=== PATIENT | female | born 1990 | race Caucasian/White ===

== ENCOUNTER 2018-02-04 22:41 | Emergency (ER) | payer BC, OTHER ==
[~2018-02-04] VITALS: Ht 154.9 cm; Wt 51.3 kg
[~2018-02-04 22:41] MED LIST: ALBUTEROL; CIPROFLOXACIN500 M1 PO; FLAGYL500 MG PO; FLEXERIL PO; NORCO 5-325 TA1 EACH PO; PHENERGAN 25 MG25 M1 PO; ZOFRAN4 MG PO
[2018-02-04 23:27] LABS: URINE BILIRUBIN NEGATIVE (Negative); URINE BLOOD NEGATIVE (Negative); URINE CLARITY CLEAR; URINE COLOR YELLOW; URINE GLUCOSE-RANDOM* NEGATIVE (Negative); URINE KETONES NEGATIVE (Negative); URINE LEUKOCYTES-REFLEX NEGATIVE (Negative); URINE NITRITE-REFLEX NEGATIVE (Negative); URINE PROTEIN (DIPSTICK) NEGATIVE (Negative); URINE SPECIFIC GRAVITY 1.015 (1.005-1.035); URINE UROBILINOGEN 0.2 E.U./dl (0.2-1.0)
[2018-02-04 23:39] LABS: ABSOLUTE NEUTROPHILS 4.5 thou/uL (1.4-8.2); BASOPHILS 0.7 % (0.0-2.0); EOSINOPHILS 1.5 % (0.0-3.0); HEMATOCRIT 39.3 % (37.0-47.0); HEMOGLOBIN 13.5 gm/dL (12.0-15.0); LYMPHOCYTES 33.7 % (24.0-44.0); MCH 31.5 pg (26.0-34.0); MCHC 34.3 g/dL (28.0-37.0); MCV 91.8 fL (80.0-100.0); MONOCYTES 6.3 % (1.0-8.0); PLATELET COUNT 264 thou/uL (150-400); POLYS 57.8 % (36.0-66.0); RBC 4.29 mil/uL (4.20-5.00); RDW 12.1 % (10.5-14.5); WBC 7.7 thou/uL (4.0-11.0)
[2018-02-04 23:47] LABS: ANION GAP 4 mmol/L (7-16); BUN 17 mg/dL (7-18); CALCIUM 9.5 mg/dL (8.5-10.1); CHLORIDE 103 mmol/L (98-107); CO2 30 mmol/L (21-32); CREATININE 0.8 mg/dL (0.6-1.0); GLUCOSE 114 mg/dL (74-106); POTASSIUM 3.8 mmol/L (3.5-5.1); SODIUM 137 mmol/L (136-145)
[2018-02-04 23:53] LABS: ALBUMIN 4.4 g/dL (3.4-5.0); DIRECT BILIRUBIN < 0.1 mg/dL (<0.1-0.3); LIPASE 117 U/L (73-393); SGOT 20 U/L (15-37); SGPT 24 U/L (30-65); TOTAL BILIRUBIN 0.2 mg/dL (<0.1-1.0); TOTAL PROTEIN 8.3 g/dL (6.4-8.2)
[2018-02-05] MEDS ORDERED: TESSALON PERLE100 MG PO (04:33)
[2018-02-05] MEDS ORDERED: MOBIC15 MG PO (04:33)
[2018-02-05 04:46] VITALS: BP 96/48
[2018-02-06 14:08] LABS: NEISSERIA GONORRHEA-PCR Negative (Negative)
== END 2018-02-05 04:47 | disposition home or self-care (01) ==
LOC: ER 22:41
PROVIDERS: Emergency Medicine
DX: N83.201 Unspecified ovarian cyst, right side (principal); K21.9 Gastro-esophageal reflux disease without esophagitis; G43.909 Migraine, unspecified, not intractable, without status migrainosus; J45.909 Unspecified asthma, uncomplicated; F17.210 Nicotine dependence, cigarettes, uncomplicated; Z88.0 Allergy status to penicillin; Z88.1 Allergy status to other antibiotic agents

== ENCOUNTER 2019-03-30 08:49 | Emergency (ER) | payer BC, OTHER ==
[~2019-03-30] VITALS: Ht 157.5 cm; Wt 56.2 kg
[~2019-03-30 08:49] MED LIST changes: +MOBIC15 MG PO; +TESSALON PERLE100 MG PO
[2019-03-30] MEDS ORDERED: IBUPROFEN 800800 M1 PO (09:01)
[2019-03-30 09:35] LABS: URINE BILIRUBIN NEGATIVE (Negative); URINE BLOOD NEGATIVE (Negative); URINE CLARITY CLEAR; URINE COLOR YELLOW; URINE GLUCOSE-RANDOM* NEGATIVE (Negative); URINE KETONES NEGATIVE (Negative); URINE LEUKOCYTES-REFLEX NEGATIVE (Negative); URINE NITRITE-REFLEX NEGATIVE (Negative); URINE PROTEIN (DIPSTICK) NEGATIVE (Negative); URINE UROBILINOGEN 0.2 E.U./dl (0.2-1.0)
[2019-03-30 09:38] LABS: ABSOLUTE NEUTROPHILS 3.1 thou/uL (1.4-8.2); BASOPHILS 0.9 % (0.0-2.0); EOSINOPHILS 2.7 % (0.0-3.0); HEMOGLOBIN 13.5 gm/dL (12.0-15.0); LYMPHOCYTES 30.6 % (24.0-44.0); MCHC 33.7 g/dL (28.0-37.0); MCV 91.9 fL (80.0-100.0); MONOCYTES 9.4 % (1.0-8.0); PLATELET COUNT 244 thou/uL (150-400); POLYS 56.4 % (36.0-66.0); RBC 4.35 mil/uL (4.20-5.00); WBC 5.5 thou/uL (4.0-11.0)
[2019-03-30 09:46] LABS: ANION GAP 8 mmol/L (7-16); BUN 14 mg/dL (7-18); CALCIUM 9.3 mg/dL (8.5-10.1); CHLORIDE 103 mmol/L (98-107); CO2 28 mmol/L (21-32); CREATININE 0.6 mg/dL (0.6-1.0); GLUCOSE 92 mg/dL (74-106); POTASSIUM 3.8 mmol/L (3.5-5.1); SODIUM 139 mmol/L (136-145)
[2019-03-30 09:52] LABS: ALBUMIN 3.4 g/dL (3.4-5.0); DIRECT BILIRUBIN < 0.1 mg/dL (<0.1-0.3); LIPASE 114 U/L (73-393); SGOT 16 U/L (15-37); SGPT 19 U/L (30-65); TOTAL BILIRUBIN 0.6 mg/dL (<0.1-1.0); TOTAL PROTEIN 7.7 g/dL (6.4-8.2)
[2019-03-30 10:41] VITALS: BP 92/56
== END 2019-03-30 10:42 | disposition home or self-care (01) ==
LOC: ER 08:49
PROVIDERS: Emergency Medicine
DX: R10.13 Epigastric pain (principal); R10.30 Lower abdominal pain, unspecified; K21.9 Gastro-esophageal reflux disease without esophagitis; F17.210 Nicotine dependence, cigarettes, uncomplicated; J45.909 Unspecified asthma, uncomplicated; G43.909 Migraine, unspecified, not intractable, without status migrainosus; Z88.0 Allergy status to penicillin; Z88.1 Allergy status to other antibiotic agents

== ENCOUNTER 2019-08-08 23:52 | Emergency (ER) | payer BC, OTHER ==
[~2019-08-08] VITALS: Ht 154.9 cm; Wt 57.1 kg
[~2019-08-08 23:52] MED LIST changes: +IBUPROFEN 800800 M1 PO
[2019-08-09 00:36] LABS: URINE BILIRUBIN NEGATIVE (Negative); URINE BLOOD NEGATIVE (Negative); URINE CLARITY CLEAR; URINE COLOR YELLOW; URINE GLUCOSE-RANDOM* NEGATIVE (Negative); URINE KETONES NEGATIVE (Negative); URINE LEUKOCYTES-REFLEX NEGATIVE (Negative); URINE NITRITE-REFLEX NEGATIVE (Negative); URINE PROTEIN (DIPSTICK) NEGATIVE (Negative); URINE UROBILINOGEN 0.2 E.U./dl (0.2-1.0)
[2019-08-09 01:06] LABS: AMP/METHAMP Negative (Negative); BARBITURATES Negative (Negative); BENZODIAZEPINES Negative (Negative); COCAINE Negative (Negative); METHADONE Negative (Negative); OPIATES Negative (Negative); PCP Negative (Negative)
[2019-08-09 01:06] LABS: ABSOLUTE NEUTROPHILS 3.6 thou/uL (1.4-8.2); BASOPHILS 0.9 % (0.0-2.0); EOSINOPHILS 1.7 % (0.0-3.0); HEMATOCRIT 36.6 % (37.0-47.0); HEMOGLOBIN 12.6 gm/dL (12.0-15.0); MCH 31.8 pg (26.0-34.0); MCHC 34.4 g/dL (28.0-37.0); MCV 92.6 fL (80.0-100.0); MONOCYTES 6.7 % (1.0-8.0); PLATELET COUNT 251 thou/uL (150-400); POLYS 53.7 % (36.0-66.0); RBC 3.95 mil/uL (4.20-5.00); RDW 12.2 % (10.5-14.5); WBC 6.6 thou/uL (4.0-11.0)
[2019-08-09 01:13] LABS: CALCIUM 8.8 mg/dL (8.5-10.1); CREATININE 0.7 mg/dL (0.6-1.0); POTASSIUM 3.5 mmol/L (3.5-5.1)
[2019-08-09 01:19] LABS: ALBUMIN 3.8 g/dL (3.4-5.0); TOTAL BILIRUBIN 0.3 mg/dL (<0.1-1.0); TOTAL PROTEIN 7.1 g/dL (6.4-8.2)
[2019-08-09] MEDS ORDERED: ONDANSETRON ODT8 MG PO (02:41)
[2019-08-09] MEDS ORDERED: NAPROXEN375 MG PO (02:41)
[2019-08-09] MEDS ORDERED: TRAMADOL 50 MG50 MG PO (02:41)
[2019-08-09 02:54] VITALS: BP 102/50
== END 2019-08-09 02:55 | disposition home or self-care (01) ==
LOC: ER 23:52
PROVIDERS: Emergency Medicine
DX: R10.11 Right upper quadrant pain (principal); R19.7 Diarrhea, unspecified; R11.0 Nausea; K21.9 Gastro-esophageal reflux disease without esophagitis; J45.909 Unspecified asthma, uncomplicated; G43.909 Migraine, unspecified, not intractable, without status migrainosus; F17.210 Nicotine dependence, cigarettes, uncomplicated; Z88.1 Allergy status to other antibiotic agents; Z88.0 Allergy status to penicillin

== ENCOUNTER 2019-10-18 21:12 | Emergency (ER) | payer BC, OTHER ==
[~2019-10-18] VITALS: Ht 157.5 cm; Wt 57.1 kg
[~2019-10-18 21:12] MED LIST changes: +NAPROXEN375 MG PO; +ONDANSETRON ODT8 MG PO; +TRAMADOL 50 MG50 MG PO
[2019-10-18 21:14] VITALS: BP 116/73
[2019-10-18] MEDS ORDERED: NORCO 5-325 TA1 EAC1 PO (23:14)
[2019-10-18] MEDS ORDERED: LIDOCAINE PAIN1 EACH TRANSDERM (23:14)
== END 2019-10-18 23:45 | disposition home or self-care (01) ==
LOC: ER 21:12
DX: M54.5 Low back pain (principal); K21.9 Gastro-esophageal reflux disease without esophagitis; J45.909 Unspecified asthma, uncomplicated; G43.909 Migraine, unspecified, not intractable, without status migrainosus; F17.210 Nicotine dependence, cigarettes, uncomplicated; Z88.0 Allergy status to penicillin; Z88.1 Allergy status to other antibiotic agents

== ENCOUNTER 2020-01-07 15:39 | Emergency (ER) | payer BC, OTHER ==
[~2020-01-07] VITALS: Ht 157.5 cm; Wt 54.4 kg
[~2020-01-07 15:39] MED LIST changes: +LIDOCAINE PAIN1 EACH TRANSDERM; +NORCO 5-325 TA1 EAC1 PO
[2020-01-07 16:43] LABS: ABSOLUTE NEUTROPHILS 4.5 thou/uL (1.4-8.2); BASOPHILS 0.7 % (0.0-2.0); HEMOGLOBIN 13.4 gm/dL (12.0-15.0); LYMPHOCYTES 27.7 % (24.0-44.0); MCH 31.8 pg (26.0-34.0); MCHC 34.2 g/dL (28.0-37.0); PLATELET COUNT 251 thou/uL (150-400); POLYS 64.6 % (36.0-66.0); RDW 12.8 % (10.5-14.5)
[2020-01-07 16:53] LABS: URINE BILIRUBIN NEGATIVE (Negative); URINE BLOOD NEGATIVE (Negative); URINE CLARITY CLEAR; URINE COLOR YELLOW; URINE GLUCOSE-RANDOM* NEGATIVE (Negative); URINE KETONES NEGATIVE (Negative); URINE LEUKOCYTES-REFLEX NEGATIVE (Negative); URINE NITRITE-REFLEX NEGATIVE (Negative); URINE PROTEIN (DIPSTICK) NEGATIVE (Negative); URINE SPECIFIC GRAVITY 1.015 (1.005-1.035); URINE UROBILINOGEN 0.2 E.U./dl (0.2-1.0)
[2020-01-07 16:54] LABS: CALCIUM 9.1 mg/dL (8.5-10.1); CREATININE 0.8 mg/dL (0.6-1.0); POTASSIUM 3.8 mmol/L (3.5-5.1)
[2020-01-07 18:10] VITALS: BP 109/54
== END 2020-01-07 18:10 | disposition home or self-care (01) ==
LOC: ER 15:39
PROVIDERS: Nurse Practitioner Family
DX: O23.591 Infection of other part of genital tract in pregnancy, first trimester (principal); O99.611 Diseases of the digestive system complicating pregnancy, first trimester; O99.511 Diseases of the respiratory system complicating pregnancy, first trimester; O99.351 Diseases of the nervous system complicating pregnancy, first trimester; O99.331 Smoking (tobacco) complicating pregnancy, first trimester; Z3A.01 Less than 8 weeks gestation of pregnancy; Z88.1 Allergy status to other antibiotic agents; Z88.0 Allergy status to penicillin

== ENCOUNTER 2020-02-06 00:22 | Emergency (ER) | payer BC, OTHER ==
[~2020-02-06] VITALS: Ht 154.9 cm; Wt 54.4 kg
[2020-02-06] MEDS ORDERED: FAMOTIDINE 20 M20 MG PO (00:53)
[2020-02-06] MEDS ORDERED: DICLEGIS DR 101 EACH PO (00:54)
[2020-02-06] MEDS ORDERED: FOLIC ACID1 MG PO (00:55)
[2020-02-06 00:58] LABS: ABSOLUTE NEUTROPHILS 6.1 thou/uL (1.4-8.2); BASOPHILS 0.6 % (0.0-2.0); HEMATOCRIT 35.7 % (37.0-47.0); HEMOGLOBIN 12.5 gm/dL (12.0-15.0); LYMPHOCYTES 25.3 % (24.0-44.0); MCH 32.4 pg (26.0-34.0); MCV 92.4 fL (80.0-100.0); MONOCYTES 5.7 % (1.0-8.0); PLATELET COUNT 233 thou/uL (150-400); POLYS 67.4 % (36.0-66.0); RBC 3.87 mil/uL (4.20-5.00); RDW 12.8 % (10.5-14.5); WBC 9.1 thou/uL (4.0-11.0)
[2020-02-06 01:13] LABS: CALCIUM 8.8 mg/dL (8.5-10.1); CREATININE 0.7 mg/dL (0.6-1.0); POTASSIUM 3.6 mmol/L (3.5-5.1)
[2020-02-06 02:16] VITALS: BP 97/55
--- NOTE | 2020-02-06 09:28 | EKG ---
[facility] [place] [address] ELECTROCARDIOGRAM REPORT Name: LEA PAVON [id number] Admission: 02/06/20 Attend Phys: Discharge: 02/06/20 Date of : [birth year] Report #: [id number] THIS REPORT FOR: cc: [facility] - Clinic physician unknown [facility] - Clinic physician unknown Anselmo Vera MD [facility] THIS REPORT FOR: //name// [facility] ED Test Date: 2020-02-06 Test Time: 00:38:52 Pat Name: LEA PAVON Department: Room: Gender: F Clinical Dietetic Technician: [place] [id number] : 1990 Requested By: Bruce Arteaga Order Number: [id number] MD: Anselmo Vera Measurements Intervals Walker Rate: 60 P: 55 DE: 109 QRS: 80 QRSD: 99 T: 37 QT: 429 QTc: 429 Interpretive Statements Sinus rhythm Short DE interval No previous ECG available for comparison Electronically Signed On 02-06-2020 9:26:54 CDT by Anselom Vera [email or web address] <ELECTRONICALLY SIGNED> By: Anselmo Vera MD, FAC 02/06/20 0926 0038 0038 Anselmo Vera MD, FACC /EPI
== END 2020-02-06 02:16 | disposition home or self-care (01) ==
LOC: ER 00:22
PROVIDERS: Emergency Medicine
DX: O26.891 Other specified pregnancy related conditions, first trimester (principal); R10.84 Generalized abdominal pain; K21.9 Gastro-esophageal reflux disease without esophagitis; J45.909 Unspecified asthma, uncomplicated; G43.909 Migraine, unspecified, not intractable, without status migrainosus; F17.210 Nicotine dependence, cigarettes, uncomplicated; Z3A.09 9 weeks gestation of pregnancy; Z88.0 Allergy status to penicillin; Z88.1 Allergy status to other antibiotic agents

== ENCOUNTER 2020-07-03 20:38 | Emergency (ER) | payer BC, OTHER ==
[~2020-07-03] VITALS: Ht 154.9 cm; Wt 64.0 kg
[~2020-07-03 20:38] MED LIST changes: +DICLEGIS DR 101 EACH PO; +FAMOTIDINE 20 M20 MG PO; +FOLIC ACID1 MG PO
[2020-07-03 20:54] VITALS: BP 120/72
[2020-07-03] MEDS ORDERED: PRENATAL PO (21:00)
== END 2020-07-03 21:51 | disposition home or self-care (01) ==
LOC: ER 20:38
DX: O26.893 Other specified pregnancy related conditions, third trimester (principal); R10.9 Unspecified abdominal pain; R07.89 Other chest pain; O99.613 Diseases of the digestive system complicating pregnancy, third trimester; K21.9 Gastro-esophageal reflux disease without esophagitis; O99.353 Diseases of the nervous system complicating pregnancy, third trimester; G43.909 Migraine, unspecified, not intractable, without status migrainosus; O99.333 Smoking (tobacco) complicating pregnancy, third trimester; F17.210 Nicotine dependence, cigarettes, uncomplicated; Z3A.29 29 weeks gestation of pregnancy; Z79.899 Other long term (current) drug therapy; Z88.1 Allergy status to other antibiotic agents; Z88.0 Allergy status to penicillin

== ENCOUNTER 2021-07-01 08:08 | Emergency (ER) | payer BC, OTHER ==
[~2021-07-01] VITALS: Ht 154.9 cm; Wt 57.1 kg
[~2021-07-01 08:08] MED LIST changes: +PRENATAL PO
[2021-07-01] MEDS ORDERED: ZOFRAN ODT4 MG PO (10:20)
[2021-07-01] MEDS ORDERED: BACTRIM DS TAB1 EACH PO (10:20)
[2021-07-01 10:31] VITALS: BP 109/71
== END 2021-07-01 10:30 | disposition home or self-care (01) ==
LOC: ER 08:08
PROVIDERS: Emergency Medicine
DX: J02.9 Acute pharyngitis, unspecified (principal); Z20.822 Contact with and (suspected) exposure to COVID-19; K21.9 Gastro-esophageal reflux disease without esophagitis; G43.909 Migraine, unspecified, not intractable, without status migrainosus; F17.210 Nicotine dependence, cigarettes, uncomplicated; Z86.16 Personal history of COVID-19; Z79.899 Other long term (current) drug therapy; Z88.0 Allergy status to penicillin; Z88.1 Allergy status to other antibiotic agents

== ENCOUNTER 2021-07-04 11:51 | Emergency (ER) | payer BC, OTHER ==
[~2021-07-04] VITALS: Ht 154.9 cm; Wt 57.1 kg
[~2021-07-04 11:51] MED LIST changes: +BACTRIM DS TAB1 EACH PO; +ZOFRAN ODT4 MG PO
[2021-07-04 11:52] VITALS: BP 107/45
== END 2021-07-04 12:36 | disposition left against medical advice (07) ==
LOC: ER 11:51
DX: R59.1 Generalized enlarged lymph nodes (principal); J45.909 Unspecified asthma, uncomplicated; J06.9 Acute upper respiratory infection, unspecified; K21.9 Gastro-esophageal reflux disease without esophagitis; G43.909 Migraine, unspecified, not intractable, without status migrainosus; F17.210 Nicotine dependence, cigarettes, uncomplicated; Z86.16 Personal history of COVID-19; Z79.891 Long term (current) use of opiate analgesic; Z79.899 Other long term (current) drug therapy; Z88.1 Allergy status to other antibiotic agents; Z88.0 Allergy status to penicillin

== ENCOUNTER 2021-09-09 16:28 | Emergency (ER) | payer BC, OTHER ==
[~2021-09-09] VITALS: Ht 154.9 cm; Wt 54.4 kg
[2021-09-09 17:31] LABS: URINE BILIRUBIN NEGATIVE (Negative); URINE BLOOD 3+ (Negative); URINE CLARITY SL CLOUDY; URINE COLOR YELLOW; URINE GLUCOSE-RANDOM* NEGATIVE (Negative); URINE KETONES NEGATIVE (Negative); URINE NITRITE-REFLEX NEGATIVE (Negative); URINE PROTEIN (DIPSTICK) 1+ (Negative); URINE SPECIFIC GRAVITY >= 1.030 (1.005-1.035); URINE UROBILINOGEN 0.2 E.U./dl (0.2-1.0)
[2021-09-09 17:33] LABS: URINE LEUKOCYTES-REFLEX 1+ (Negative)
[2021-09-09 17:42] LABS: CASTS None Seen /LPF (None Seen); SQUAMOUS 4-10 Moderate /LPF (0-3); URINE WBC-REFLEX >25 Many /HPF (0-5)
[2021-09-09 17:43] LABS: CRYSTALS None Seen /LPF (None Seen); URINE RBC >20 Many /HPF (NONE SEEN)
[2021-09-09] MEDS ORDERED: PHENAZOPYRIDIN200 M2 PO (17:45)
[2021-09-09] MEDS ORDERED: CEPHALEXIN500 MG PO (17:45)
[2021-09-09 17:58] VITALS: BP 100/66
== END 2021-09-09 18:10 | disposition home or self-care (01) ==
LOC: ER 16:28
PROVIDERS: Emergency Medicine
DX: N39.0 Urinary tract infection, site not specified (principal); J45.909 Unspecified asthma, uncomplicated; G43.909 Migraine, unspecified, not intractable, without status migrainosus; K21.9 Gastro-esophageal reflux disease without esophagitis; F17.210 Nicotine dependence, cigarettes, uncomplicated; Z86.16 Personal history of COVID-19; Z79.899 Other long term (current) drug therapy; Z88.0 Allergy status to penicillin; Z88.1 Allergy status to other antibiotic agents

== ENCOUNTER 2021-09-11 15:43 | Emergency (ER) | payer BC, OTHER ==
[~2021-09-11] VITALS: Ht 154.9 cm; Wt 54.4 kg
[~2021-09-11 15:43] MED LIST changes: +CEPHALEXIN500 MG PO; +PHENAZOPYRIDIN200 M2 PO
[2021-09-11 16:18] VITALS: BP 99/62
[2021-09-11 16:32] LABS: URINE BLOOD NEGATIVE (Negative); URINE GLUCOSE-RANDOM* NEGATIVE (Negative); URINE KETONES 3+ (Negative); URINE LEUKOCYTES-REFLEX TRACE (Negative); URINE PROTEIN (DIPSTICK) 1+ (Negative); URINE SPECIFIC GRAVITY >= 1.030 (1.005-1.035)
[2021-09-11 16:44] LABS: URINE NITRITE-REFLEX POSITIVE (Negative)
[2021-09-11 16:45] LABS: ICTOTEST (BILI CONFIRMATORY) Negative (Negative); URINE BILIRUBIN NEGATIVE (Negative); URINE CLARITY SL.CLOUDY; URINE COLOR ORANGE; URINE REDUCING SUBSTANCE NEGATIVE
[2021-09-11 16:46] LABS: ABSOLUTE NEUTROPHILS 7.5 thou/uL (1.4-8.2); BASOPHILS 0.1 % (0.0-2.0); EOSINOPHILS 0.2 % (0.0-3.0); HEMATOCRIT 41.1 % (37.0-47.0); HEMOGLOBIN 13.7 gm/dL (12.0-15.0); LYMPHOCYTES 8.1 % (24.0-44.0); MCH 30.2 pg (26.0-34.0); MCHC 33.5 g/dL (28.0-37.0); MCV 90.4 fL (80.0-100.0); MONOCYTES 3.2 % (1.0-8.0); PLATELET COUNT 257 thou/uL (150-400); POLYS 88.4 % (36.0-66.0); RBC 4.54 mil/uL (4.20-5.00); RDW 13.1 % (10.5-14.5); WBC 8.5 thou/uL (4.0-11.0)
[2021-09-11 16:49] LABS: CASTS None Seen /LPF (None Seen); CRYSTALS None Seen /LPF (None Seen); MUCUS >6 Heavy strn/LPF (None Seen); SQUAMOUS >10 Many /LPF (0-3); URINE RBC 1-2 Rare /HPF (NONE SEEN); URINE WBC-REFLEX 6-15 Few /HPF (0-5)
[2021-09-11 16:52] LABS: CALCIUM 9.2 mg/dL (8.5-10.1); CREATININE 0.7 mg/dL (0.6-1.0); POTASSIUM 3.6 mmol/L (3.5-5.1)
[2021-09-11 16:58] LABS: TOTAL BILIRUBIN 0.5 mg/dL (0.2-1.0); TOTAL PROTEIN 7.5 g/dL (6.4-8.2)
[2021-09-11] MEDS ORDERED: ZOFRAN ODT4 MG PO (17:48)
--- NOTE | 2021-09-12 07:30 | EKG ---
[address] [address] ELECTROCARDIOGRAM REPORT Name: SAVANAHLEA SHANKAR Room #: [facility] Lawson#: [id number] Admission: 09/11/21 Attend Phys: Discharge: 09/11/21 Date of : [birth year] Report #: [id number] [facility] ED Test Date: 2021-09-11 Test Time: 16:23:37 Pat Name: LEA PAVON Department: Room: Gender: F [employer] Specialist: chuy : 1990 Requested By: Ike Fraser Order Number: [id number] MD: Trey Fishman Measurements Intervals [place] Rate: 78 P: 80 TX: 108 QRS: 88 QRSD: 90 T: 36 QT: 357 QTc: 407 Interpretive Statements Sinus rhythm Short [place] interval Compared to ECG 02/06/2020 00:38:52 No significant changes Electronically Signed On 09-12-2021 7:30:17 [employer] by Trey Fishman [email or web address] <ELECTRONICALLY SIGNED> By: Trey Fishman MD, [facility] 09/12/21 0730 1623 1623 Trey Fishman MD, FACC /EPI
== END 2021-09-11 17:59 | disposition home or self-care (01) ==
LOC: ER 15:43
PROVIDERS: Emergency Medicine
DX: R11.2 Nausea with vomiting, unspecified (principal); Z20.822 Contact with and (suspected) exposure to COVID-19; N39.0 Urinary tract infection, site not specified; K21.9 Gastro-esophageal reflux disease without esophagitis; J45.909 Unspecified asthma, uncomplicated; G43.909 Migraine, unspecified, not intractable, without status migrainosus; F17.210 Nicotine dependence, cigarettes, uncomplicated; Z86.16 Personal history of COVID-19; Z79.891 Long term (current) use of opiate analgesic; Z79.899 Other long term (current) drug therapy; Z88.1 Allergy status to other antibiotic agents; Z88.0 Allergy status to penicillin

== ENCOUNTER 2021-10-12 19:52 | Emergency (ER) | payer BC, OTHER ==
[~2021-10-12] VITALS: Ht 154.9 cm; Wt 54.4 kg
[2021-10-12 19:56] VITALS: BP 102/64
[2021-10-12 20:30] LABS: URINE BILIRUBIN NEGATIVE (Negative); URINE BLOOD NEGATIVE (Negative); URINE CLARITY CLEAR; URINE COLOR YELLOW; URINE GLUCOSE-RANDOM* NEGATIVE (Negative); URINE KETONES NEGATIVE (Negative); URINE LEUKOCYTES-REFLEX NEGATIVE (Negative); URINE NITRITE-REFLEX NEGATIVE (Negative); URINE PROTEIN (DIPSTICK) NEGATIVE (Negative); URINE UROBILINOGEN 0.2 E.U./dl (0.2-1.0)
[2021-10-12] MEDS ORDERED: IBU600 MG PO ×2 (21:28→21:55)
[2021-10-12] MEDS ORDERED: CYCLOBENZAPRINE5 MG PO ×2 (21:28→21:55)
[2021-10-12] MEDS ORDERED: ZOFRAN ODT4 MG PO ×2 (21:28→21:55)
== END 2021-10-12 21:50 | disposition home or self-care (01) ==
LOC: ER 19:52
PROVIDERS: Emergency Medicine
DX: B34.9 Viral infection, unspecified (principal); Z20.822 Contact with and (suspected) exposure to COVID-19; M54.9 Dorsalgia, unspecified; R20.2 Paresthesia of skin; K21.9 Gastro-esophageal reflux disease without esophagitis; J45.909 Unspecified asthma, uncomplicated; F17.210 Nicotine dependence, cigarettes, uncomplicated; G43.909 Migraine, unspecified, not intractable, without status migrainosus; Z88.0 Allergy status to penicillin; Z88.8 Allergy status to other drugs, medicaments and biological substances